=== PATIENT | female | born 1945 | race Hispanic/Latino ===

== ENCOUNTER 2017-06-05 11:28 | Outpatient (CLI) | payer MEDICARE, OTHER | END 2017-06-05 11:29 | disposition home or self-care (01) | LOC: BICMAMMO 11:28 | PROVIDERS: ATTEND Family Medicine | DX: Z12.31 Encounter for screening mammogram for malignant neoplasm of breast (principal) | CPT/HCPCS: 77063; 77067 ==

== ENCOUNTER 2018-02-28 09:40 | Outpatient (CLI) | payer MEDICARE, OTHER ==
--- NOTE | 2018-02-28 12:57 | CT ---
CT ABDOMEN WITH CONTRAST CT PELVIS WITH CONTRAST: COMPARISON: None. CORRELATION: Stone protocol CT 01/22/2015. HISTORY: Persistent pain after empirical treatment for diverticulitis. FINDINGS: ABDOMEN CT: Dependent atelectatic changes. Heart size is normal. No significant pericardial fluid. The visualiz ed aorta has a normal caliber. Ground-gallbladder is unremarkable. Portal vein is patent. Subcentimeter hypodensity in the liver, too small to characterize. Mild hypoattenuation of the liver may be due to component of hepatic braeden atosis. The spleen, pancreas, and adrenal glands are unremarkable. Portal vein is patent. Unremarkable gallbladder. Symmetric enhancement of the kidneys. No obstructive uropathy. No gastrohepatic, retrocrural, or periportal lymphadenopathy. No mesenteric mass, lymphadenopathy, free air, or free fluid. Gastric mucosa, duodenum, and multiple normal-caliber small bowel loops are noted. Ileocecal junctio n is normal. There is persistent mucosal thickening involving the distal cecum and proximal ascendin g colon. Colonoscopy is recommended. The remainder of the colon is unremarkable. There are diverti cula without evidence of diverticulitis. Appendix is normal in appearance. No inflammation at the cecal apex. PELVIC CT: The urinary bladder is unremarkable. No pelvic mass, lymphadenopathy, free air, or free fluid. Extensive postsurgical change involving the lumbar spine. IMPRESSION: There is evidence of mucosal thickening involving the cecum and ascending colon as described above. Findings may be due to an infectious or inflammatory process. However, an underlying malignant proce ss cannot be excluded. Colonoscopy is recommended. POS: [facility]
== END 2018-02-28 09:41 | disposition home or self-care (01) ==
LOC: SCSCT 09:40
PROVIDERS: ATTEND Internal Medicine Gastroenterology
DX: K58.1 Irritable bowel syndrome with constipation (principal); K21.9 Gastro-esophageal reflux disease without esophagitis; F45.8 Other somatoform disorders; R10.32 Left lower quadrant pain; K63.89 Other specified diseases of intestine
CPT/HCPCS: 74177

== ENCOUNTER 2018-04-17 12:27 | Outpatient (CLI) | payer MEDICARE, OTHER ==
[2018-04-17 14:36] LABS: Estimated GFR-MDRD - POC Greater than 90
--- NOTE | 2018-04-17 15:49 | MRI ---
MRI LUMBAR SPINE WITH AND WITHOUT CONTRAST: Multiplanar, multisequential imaging lumbar spine obtained. Postcontrast images obtained after admin istering 13 cc MultiHance IV. INDICATION: Back pain. History of prior back surgery. COMPARISON: Comparison is made to an MRI of the lumbar spine dated 12/23/2014. FINDINGS: The lumbar vertebrae maintain height. Vertebral body signal is preserved with no evidence of edema. There is grade I anterolisthesis at L4-5 and at L5-S1 which was noted previously. There are pedicle screws at L4, L5, and S1 levels which were present previously. Disk bulges at thes e levels appear stable. Findings are described above. At L1-2, no significant disk bulge. Mild facet arthrosis. No central canal or foraminal stenosis. At L2-3, no significant disk bulge. Mild to moderate facet and ligamentous hypertrophy. Very mild c entral canal stenosis. At L3-4, mild disk bulge. Facet hypertrophy. Facet hypertrophy results in mild central canal stenos is. At L4, there are pedicle screws that appear adequately positioned. At L4-5, there is a grade I anterolisthesis with diffuse disk bulge. Posterior laminectomy change. Facet hypertrophy. Annular fissure. No significant central canal stenosis. Left foraminal encroach ment secondary to disk bulge and hypertrophic change. At L5-S1, grade I anterolisthesis broad-based disk bulge. Pedicle screws. Facet hypertrophy. Poste rior laminectomy change. No significant central canal stenosis. Bilateral foraminal narrowing and e ncroachment due to disk bulge and facet hypertrophy. IMPRESSION: Degenerative disk changes and anterolisthesis at L4-5 and L5-S1. Postop changes are also seen at the se levels with findings described above. POS: [facility]
--- NOTE | 2018-04-17 17:02 | MRI ---
MRI CERVICAL SPINE: Multiplanar, multisequential imaging of cervical spine obtained. INDICATION: Neck pain. FINDINGS: Straightening of the lordotic curvature. Vertebral bodies maintain height. There is a slight kwabena listhesis of L4-5 measured at approximately 2 mm. There is anterior wedging involving the C4 and C5 vertebrae with anterior osteophytes. No vertebral body edema. Broad-based disk bulge/protrusion at C5-6 impinges on and mildly flattens the anterior cord. At C6-7, broad-based disk bulge effaces the anterior subarachnoid space and abuts the anterior cord. No significant disk bulge or spondylosis is seen at the other cervical levels. The cervical cord signal is normal with no evidence of myelomalacia. IMPRESSION: Broad-based disk bulge at C5-6 impinges on the cord and mild posterior disk bulge and spondylosis at C6-7 noted as described above. Slight anterolisthesis at C4-5 and C5-6 with mild anterior wedging at C4 and C5 vertebrae. POS: [facility]
== END 2018-04-17 12:28 | disposition home or self-care (01) ==
LOC: SCSMRI 12:27
PROVIDERS: ATTEND Physical Medicine & Rehabilitation
DX: M54.2 Cervicalgia (principal); R53.1 Weakness; M50.322 Other cervical disc degeneration at C5-C6 level; M47.812 Spondylosis without myelopathy or radiculopathy, cervical region; M43.12 Spondylolisthesis, cervical region; M51.36 Other intervertebral disc degeneration, lumbar region; M43.16 Spondylolisthesis, lumbar region; M43.17 Spondylolisthesis, lumbosacral region; M51.37 Other intervertebral disc degeneration, lumbosacral region; M47.817 Spondylosis without myelopathy or radiculopathy, lumbosacral region; M48.07 Spinal stenosis, lumbosacral region; M47.816 Spondylosis without myelopathy or radiculopathy, lumbar region; M48.061 Spinal stenosis, lumbar region without neurogenic claudication; Z98.890 Other specified postprocedural states
CPT/HCPCS: 72141; 72158; 82565

== ENCOUNTER 2018-05-08 12:24 | Outpatient (CLI) | payer MEDICARE, OTHER ==
--- NOTE | 2018-05-08 14:40 | RAD ---
LUMBAR SPINE SERIES FOUR VIEWS INCLUDING FLEXION AND EXTENSION: History: Follow up surgery, back pain. FINDINGS: Bilateral pedicle screws are seen at the L4, L5 and S1 levels with vertical connecting rods. Laminect jeffery changes are seen at L5. There is spondylolisthesis of L4 on L5 and L5 on S1, not definitely taylor ing on the flexion views. The L4-5 may minimally reduce in extension. IMPRESSION: Post-operative changes of the lower lumbar spine as discussed above. POS: [facility]
== END 2018-05-08 12:25 | disposition home or self-care (01) ==
LOC: BICRAD 12:24
PROVIDERS: ATTEND Physical Medicine & Rehabilitation
DX: M43.16 Spondylolisthesis, lumbar region (principal); M43.17 Spondylolisthesis, lumbosacral region; M47.816 Spondylosis without myelopathy or radiculopathy, lumbar region
CPT/HCPCS: 72110